=== PATIENT | female | born 1980 | race American Indian/Alaskan Native ===

== ENCOUNTER 2020-01-10 22:49 | Emergency (ER) | payer BC, OTHER ==
[2020-01-10] MEDS ORDERED: Sodium Chloride 0.9% 10 ML Syringe FLUSH PRN (23:24)
[2020-01-10 23:33] VITALS: BP 111/71; PULSE 87
--- NOTE | 2020-01-10 23:43 | CR ---
PROCEDURE INFORMATION: Exam: XR Chest, 1 View Exam date and time: 01/10/2020 11:34 PM Age: 39 years old Clinical indication: Chest pain; Type not specified TECHNIQUE: Imaging protocol: XR of the chest Views: 1 view. COMPARISON: No relevant prior studies available. FINDINGS: Lungs: Unremarkable. No consolidation. Pleural space: Unremarkable. No pleural effusion. No pneumothorax. Heart/Mediastinum: Unremarkable. No cardiomegaly. Bones/joints: Unremarkable. IMPRESSION: 1. No acute or active chest disease. 2. Lungs are clear. 3. Heart size normal.
[2020-01-11 00:01] LABS: ANION GAP 15.3 mEq/L (7-13); CHLORIDE,CL 105 mmol/L (98-107); SODIUM,NA 141 mmol/L (136-145)
--- NOTE | 2020-01-11 00:28 | EDM.PDOC ---
ED HPI GENERAL MEDICAL PROBLEM - General Chief Complaint: Chest Pain Stated Complaint: CHEST PAIN Time Seen by Provider: 01/11/20 00:02 Source of Information: Reports: Patient History Limitations: Reports: No Limitations - History of Present Illness INITIAL COMMENTS - FREE TEXT/NARRATIVE: c/o intermittent chest pain since wednesday, not associated with meals or activity. No SOB, No radiation, No cough Left Upper Chest Pain Score (Numeric/FACES): 4 - Related Data Allergies Allergy/AdvReac Type Severity Reaction Status Date / Time Sulfa (Sulfonamide Allergy Other Verified 01/10/20 23:16 Antibiotics) Home Meds: Home Meds . [No Known Home Meds] 02/16/15 [History] Past Medical History HEENT History: Reports: Impaired Vision Social & Family History - Family History Family Medical History: Noncontributory - Tobacco Use Smoking Status *Q: Unknown Ever Smoked Second Hand Smoke Exposure: Yes - Caffeine Use Caffeine Use: Reports: Soda - Recreational Drug Use Recreational Drug Use: No ED ROS GENERAL - Review of Systems Review Of Systems: Comprehensive ROS is negative, except as noted in HPI. ED EXAM, GENERAL - Physical Exam Exam: See Below Exam Limited By: Language Barrier General Appearance: Alert, No Apparent Distress Eye Exam: Bilateral Eye: EOMI, PERRL Ears: Normal External Exam, Normal TMs Nose: Normal Inspection Throat/Mouth: Normal Inspection Head: Atraumatic, Normocephalic Neck: Normal Inspection Respiratory/Chest: No Respiratory Distress, Lungs Clear, Normal Breath Sounds. No: Chest Non-Tender (mild point tenderness Mid clavicular 3rd, 4th ICS) Cardiovascular: Regular Rate, Rhythm, No Edema GI/Abdominal: Normal Bowel Sounds Back Exam: Full Range of Motion Extremities: Normal Inspection, Normal Range of Motion Neurological: Alert, Oriented Psychiatric: Normal Affect, Normal Mood Skin Exam: Warm, Dry, Intact, Normal Color Course - Vital Signs Last Recorded V/S: Last Vital Signs Temp 97.5 F 01/10/20 23:26 Pulse 87 01/10/20 23:26 Resp 18 01/10/20 23:26 BP 111/71 01/10/20 23:26 Pulse Ox 99 01/10/20 23:26 - Orders/Labs/Meds Labs: Laboratory Tests 01/10/20 01/10/20 01/10/20 Range/Units 23:32 23:32 23:32 WBC 15.0 H (5.0-10.0) 10^3/uL RBC 4.73 (4.2-5.4) 10^6/uL Hgb 13.8 (12.0-16.0) g/dL Hct 41.0 (37.0-47.0) % MCV 86.7 (80-100) fL MCH 29.2 (27.0-34.0) pg MCHC 33.7 (33.0-35.0) g/dL Plt Count 344 (150-450) 10^3/uL Neut % (Auto) 66.4 (42.2-75.2) % Lymph % (Auto) 24.8 (20.5-50.1) % [place] % (Auto) 6.9 (2-8) % Eos % (Auto) 1.7 (1.0-3.0) % Baso % (Auto) 0.2 (0.0-1.0) % D-Dimer, Quantitative 118 (0-400) ng/mL Sodium 141 (136-145) mmol/L Potassium 3.3 L (3.5-5.1) mmol/L Chloride 105 (98-107) mmol/L Carbon Dioxide 24 (21-32) mmol/L Anion Gap 15.3 H (7-13) mEq/L BUN 11 (7-18) mg/dL Creatinine 0.94 (0.55-1.02) mg/dL Est Cr Clr Drug Dosing TNP Estimated GFR (MDRD) > 60 BUN/Creatinine Ratio 11.7 (No establ ref range) Glucose 117 H (74-99) mg/dL Lactic Acid (0.4-2.0) mmol/L Calcium 8.5 (8.5-10.1) mg/dL Total Bilirubin 0.6 (0.2-1.0) mg/dL AST 17 (15-37) U/L ALT 32 (14-59) U/L Alkaline Phosphatase 93 (46-116) U/L CK-MB (CK-2) (0.0-3.6) ng/mL Troponin I < 0.017 (0.000-0.056) ng/mL Total Protein 7.2 (6.4-8.2) g/dL Albumin 3.7 (3.4-5.0) g/dL Globulin 3.5 Albumin/Globulin Ratio 1.1 01/10/20 01/10/20 Range/Units 23:32 23:32 WBC (5.0-10.0) 10^3/uL RBC (4.2-5.4) 10^6/uL Hgb (12.0-16.0) g/dL Hct (37.0-47.0) % MCV (80-100) fL MCH (27.0-34.0) pg MCHC (33.0-35.0) g/dL Plt Count (150-450) 10^3/uL Neut % (Auto) (42.2-75.2) % Lymph % (Auto) (20.5-50.1) % [place] % (Auto) (2-8) % Eos % (Auto) (1.0-3.0) % Baso % (Auto) (0.0-1.0) % D-Dimer, Quantitative (0-400) ng/mL Sodium (136-145) mmol/L Potassium (3.5-5.1) mmol/L Chloride (98-107) mmol/L Carbon Dioxide (21-32) mmol/L Anion Gap (7-13) mEq/L BUN (7-18) mg/dL Creatinine (0.55-1.02) mg/dL Est Cr Clr Drug Dosing Estimated GFR (MDRD) BUN/Creatinine Ratio (No establ ref range) Glucose (74-99) mg/dL Lactic Acid 1.4 (0.4-2.0) mmol/L Calcium (8.5-10.1) mg/dL Total Bilirubin (0.2-1.0) mg/dL AST (15-37) U/L ALT (14-59) U/L Alkaline Phosphatase (46-116) U/L CK-MB (CK-2) 0.6 (0.0-3.6) ng/mL Troponin I (0.000-0.056) ng/mL Total Protein (6.4-8.2) g/dL Albumin (3.4-5.0) g/dL Globulin Albumin/Globulin Ratio Meds: Medications Discontinued Medications Generic Name Dose Route Start Last Admin Trade Name Freq PRN Reason Stop Dose Admin Sodium Chloride 10 ml 01/10/20 23:24 01/10/20 23:30 Saline Flush FLUSH 10 ml ASDIRECTED PRN Administration Keep Vein Open Departure - Departure Time of Disposition: 00:23 Disposition: Home, Self-Care 01 Condition: Good Clinical Impression: Chest pain Qualifiers: Chest pain type: intercostal pain Qualified Code(s): R07.82 - Intercostal pain Instructions: Chest Wall Pain, [id number] Referrals: PCP,None [Ordering Only Provider] - Forms: ED Department Discharge Additional Instructions: alternate tylenol and ibuprofen every 4 hours deep breathing exercises every 2 hours while awake light bland diet clinic follow up one week if continues urgent follow up if associated with SOB, radiation to jaw, Sepsis Event Note (ED) - Evaluation Sepsis Screening Result: No Definite Risk
== END 2020-01-11 00:35 | disposition home or self-care (01) ==
LOC: DL.ED 22:49
DX: R07.82 Intercostal pain (principal); Z77.22 Contact with and (suspected) exposure to environmental tobacco smoke (acute) (chronic); Z88.2 Allergy status to sulfonamides
CPT/HCPCS: 36415; 71045; 80053; 82553; 83605; 84484; 85025; 85379; 93005; 99285-25

== ENCOUNTER 2025-01-29 11:55 | Emergency (ER) | payer OTHER ==
[~2025-01-29 11:55] MED LIST: Sodium Chloride 0.9% 10 ML Syringe FLUSH PRN
[2025-01-29 12:23] LABS: BASOPHILS PERCENT AUTO 0.3 % (0.0-1.0); EOSINOPHILS PERCENT AUTO 2.5 % (1.0-3.0); LYMPHOCYTES PERCENT AUTO 15.9 % (20.5-50.1); MONOCYTES PERCENT AUTO 8.5 % (2-8); NEUTROPHILS PERCENT AUTO 72.8 % (42.2-75.2); PLATELET COUNT,PLT 345 10^3/uL (150-450); RED BLOOD CELL COUNT 4.81 10^6/uL (4.2-5.4); WHITE BLOOD CELL COUNT,WBC 13.4 10^3/uL (5.0-10.0)
[2025-01-29 12:32] LABS: A/G RATIO 1.1; ALANINE AMINOTRANSFERASE,ALT 24 U/L (14-59); ASPARTATE AMNIOTRANSFERASE,AST 14 U/L (15-37); BILIRUBIN TOTAL 1.0 mg/dL (0.2-1.0); BLOOD UREA NITROGEN,BUN 10 mg/dL (7-18); CARBON DIOXIDE,CO2 23 mmol/L (21-32); CHLORIDE,CL 108 mmol/L (98-107); CREATININE 0.98 mg/dL (0.55-1.02); GLUCOSE RANDOM 92 mg/dL (70-99); POTASSIUM,K 3.7 mmol/L (3.5-5.1); PROTEIN TOTAL,TP 7.0 g/dL (6.4-8.2); SODIUM,NA 141 mmol/L (136-145)
[2025-01-29 12:35] LABS: LACTIC ACID 1.5 mmol/L (0.4-2.0)
[2025-01-29 12:36] LABS: ESTIMATED GFR 73 mL/min (>=60)
[2025-01-29 13:05] LABS: APPEARANCE,URINE CLEAR (CLEAR); GLUCOSE,URINE NEGATIVE (NEGATIVE); OCCULT BLOOD,URINE LARGE (NEGATIVE)
[2025-01-29] MEDS: Lactulose Soln 10 GM/15 ML 30 ML UD Cup PO ONE (13:09)
[2025-01-29 13:15] LABS: EPITHELIAL CELLS,URINE FEW /HPF (NOT SEEN)
[2025-01-29 14:08] VITALS: BP 117/75; PULSE 57
== END 2025-01-29 13:16 | disposition home or self-care (01) ==
LOC: DL.ED 11:55
DX: K59.00 Constipation, unspecified (principal); M54.50 Low back pain, unspecified; Z88.2 Allergy status to sulfonamides
CPT/HCPCS: 36415; 74018; 80053; 81001; 83605; 83690; 83735; 84703; 85025; 86140; 87086; 99284; A9270

== ENCOUNTER 2025-01-30 00:46 | Emergency (ER) | payer OTHER ==
[2025-01-30] MEDS ORDERED: Sodium Chloride 0.9% 10 ML Syringe FLUSH PRN (01:10)
[2025-01-30 01:19] VITALS: BP 114/73; PULSE 71
[2025-01-30 01:30] LABS: BASOPHILS PERCENT AUTO 0.3 % (0.0-1.0); EOSINOPHILS PERCENT AUTO 2.6 % (1.0-3.0); LYMPHOCYTES PERCENT AUTO 20.0 % (20.5-50.1); MONOCYTES PERCENT AUTO 7.9 % (2-8); NEUTROPHILS PERCENT AUTO 69.2 % (42.2-75.2); PLATELET COUNT,PLT 297 10^3/uL (150-450); RED BLOOD CELL COUNT 4.37 10^6/uL (4.2-5.4); WHITE BLOOD CELL COUNT,WBC 13.6 10^3/uL (5.0-10.0)
[2025-01-30 01:52] LABS: A/G RATIO 0.97; ALANINE AMINOTRANSFERASE,ALT 20 U/L (14-59); ASPARTATE AMNIOTRANSFERASE,AST 14 U/L (15-37); BILIRUBIN TOTAL 0.7 mg/dL (0.2-1.0); BLOOD UREA NITROGEN,BUN 21 mg/dL (7-18); CARBON DIOXIDE,CO2 21 mmol/L (21-32); CHLORIDE,CL 108 mmol/L (98-107); CREATININE 1.24 mg/dL (0.55-1.02); EST CRCL DRUG DOSING (CG) 60.50 mL/min; ESTIMATED GFR 55 mL/min (>=60); GLUCOSE RANDOM 104 mg/dL (70-99); POTASSIUM,K 3.5 mmol/L (3.5-5.1); PROTEIN TOTAL,TP 6.5 g/dL (6.4-8.2); SODIUM,NA 138 mmol/L (136-145)
[2025-01-30 01:55] LABS: LACTIC ACID 0.8 mmol/L (0.4-2.0)
[2025-01-30] MEDS: Iopamidol 755 Mg/ML 100 ML Bottle IVPUSH ONE (02:00)
[2025-01-30] MEDS ORDERED: fentaNYL 100 MCG/2 ML SDV IVPUSH PRN (02:52)
[2025-01-30 03:28] LABS: APPEARANCE,URINE CLEAR (CLEAR); GLUCOSE,URINE NEGATIVE (NEGATIVE); OCCULT BLOOD,URINE SMALL (NEGATIVE)
[2025-01-30] MEDS: Ketorolac 30 MG/ML SDV IVPUSH ONE (03:28)
[2025-01-30 03:36] LABS: EPITHELIAL CELLS,URINE RARE /HPF (NOT SEEN)
[2025-01-30] MEDS: Take Home: Acetaminophen/HYDROcodone 325-5 MG, 5 Tab Pack PO ONE (04:20)
[2025-01-30] MEDS ORDERED: Ondansetron 4 MG/2 ML SDV ONE (04:23)
[2025-01-30] MEDS: Ondansetron 4 MG/2 ML SDV IVPUSH ONE (04:24)
[2025-01-30] MEDS: Take Home: Ondansetron 4 MG Tab.DIS, 5 Tab Pack PO ONE (04:25)
== END 2025-01-30 05:36 | disposition home or self-care (01) ==
LOC: DL.ED 00:46
DX: N20.2 Calculus of kidney with calculus of ureter (principal); R31.29 Other microscopic hematuria; Z88.2 Allergy status to sulfonamides; Z90.49 Acquired absence of other specified parts of digestive tract
CPT/HCPCS: 36415; 74177; 80053; 81001; 83605; 83690; 84145; 85025; 96361; 96365; 96375; 96376; 99284; 99285; A9270; J1171; J1885; J2405; J2543; J7030; Q0162; Q9967

== ENCOUNTER 2025-01-30 11:05 | Emergency (ER) | payer OTHER ==
[2025-01-30 11:23] VITALS: BP 101/66; PULSE 71
[2025-01-30] MEDS: Ketorolac 30 MG/ML SDV IM ONE (12:00)
== END 2025-01-30 12:03 | disposition home or self-care (01) ==
LOC: DL.ED 11:05
DX: N20.0 Calculus of kidney (principal); K59.00 Constipation, unspecified; Z88.2 Allergy status to sulfonamides
CPT/HCPCS: 96372; 99283; J1885